=== PATIENT | female | born 1965 | race American Indian/Alaskan Native ===

== ENCOUNTER 2017-05-04 09:41 | Emergency (ER) | payer OTHER ==
[2017-05-04 09:55] VITALS: BP 186/87
--- NOTE | 2017-05-04 10:54 | Emergency Department Report ---
ED General Adult HPI - General Chief complaint: Chest Pain Stated complaint: BREAST PAIN /KNOT IN BREAST Time Seen by Provider: 05/04/17 10:27 Source: patient Mode of arrival: Ambulatory Limitations: No Limitations - History of Present Illness Initial comments: PT states she was seen by PCP in July for knot in her left breast. PT states she had US and mammogram and was told that the knot is not cancerous. PT states she was told that she needs a breast biopsy. PT states that she lost her insurance and never followed up for biopsy. PT states that her L breast knot has gotten larger over the past 2 months. PT states that she has not followed up with PCP for htn or asthma management. PT states she needs a refill. Pt menopausal. PT states lmp 02/2016 MD Complaint: breast pain -: Gradual, month(s) Location: chest (L breast ) Severity scale (0 -10): 7 (breast pain) Consistency: intermittent Improves with: medication Associated Symptoms: denies other symptoms. denies: chest pain, cough, fever/ chills, headaches, loss of appetite, nausea/vomiting, shortness of breath Treatments Prior to Arrival: none - Related Data Previous Rx's Medication Instructions Recorded Last Taken Type ALBUTEROL NEB's [Proventil 0.083% 2.5 mg IH QID PRN #25 neb 05/04/17 Unknown Rx NEBS] Diclofenac Sodium [Voltaren] 4 gm TP BID PRN #1 tube 05/04/17 Unknown Rx Ibuprofen [Motrin] 600 mg PO Q8H PRN #15 tablet 05/04/17 Unknown Rx amLODIPine [Norvasc] 10 mg PO DAILY #30 tab 05/04/17 Unknown Rx Allergies Allergy/AdvReac Type Severity Reaction Status Date / Time codeine Allergy Shortness Verified 09/24/14 08:57 of Breath ED Review of Systems ROS: Stated complaint: BREAST PAIN /KNOT IN BREAST Other details as noted in HPI Comment: All other systems reviewed and negative Constitutional: denies: chills, fever Respiratory: other (pt states she is out of her asthma medication and needs a refill but she denies current symptoms ). denies: shortness of breath, SOB with exertion, SOB at rest, wheezing Cardiovascular: denies: chest pain Gastrointestinal: denies: nausea, vomiting Neurological: denies: headache, weakness Hematological/Lymphatic: denies: easy bleeding, easy bruising ED Past Medical Hx - Past Medical History Previous Medical History?: Yes Hx Hypertension: Yes Hx Asthma: Yes Hx COPD: Yes - Surgical History Past Surgical History?: Yes Additional Surgical History: tubal, - Social History Smoking Status: Never Smoker Substance Use Type: Alcohol - Medications Home Medications: Home Medications Medication Instructions Recorded Confirmed Last Taken Type ALBUTEROL NEB's [Proventil 0.083% 2.5 mg IH QID PRN #25 neb 05/04/17 Unknown Rx NEBS] Diclofenac Sodium [Voltaren] 4 gm TP BID PRN #1 tube 05/04/17 Unknown Rx Ibuprofen [Motrin] 600 mg PO Q8H PRN #15 tablet 05/04/17 Unknown Rx amLODIPine [Norvasc] 10 mg PO DAILY #30 tab 05/04/17 Unknown Rx ED Physical Exam - General Limitations: No Limitations General appearance: alert, in no apparent distress - Head Head exam: Present: atraumatic, normocephalic, normal inspection - Eye Eye exam: Present: normal appearance, PERRL, EOMI. Absent: conjunctival injection - ENT ENT exam: Present: normal exam, normal external ear exam - Neck Neck exam: Present: normal inspection, full ROM - Respiratory Respiratory exam: Present: normal lung sounds bilaterally. Absent: respiratory distress, wheezes, rales, rhonchi, chest wall tenderness, accessory muscle use, decreased breath sounds - Cardiovascular Cardiovascular Exam: Present: regular rate, normal rhythm, normal heart sounds - GI/Abdominal GI/Abdominal exam: Present: soft. Absent: tenderness - External exam: Present: other (R breast without rash or palpable mass. L breast with 4cm x 5 cm mass, non tender, no redness or changes to skin noted. ) - Extremities Exam Extremities exam: Present: normal inspection, full ROM - Back Exam Back exam: Present: normal inspection, full ROM. Absent: tenderness, CVA tenderness (R), CVA tenderness (L) - Neurological Exam Neurological exam: Present: alert, oriented X3 - Psychiatric Psychiatric exam: Present: normal affect, normal mood - Skin Skin exam: Present: warm, dry, intact, normal color ED Course Vital Signs 05/04/17 09:51 Temperature 98.4 F Pulse Rate 78 Respiratory 16 Rate Blood Pressure 186/87 O2 Sat by Pulse 97 Oximetry - Reevaluation(s) Reevaluation #1: 05/04/17 11:15 PT aware she will need to follow up with PCP for group home management of asthma and htn. PT advised to follow up with OB/ [facility] or health department for further evaluation of breast mass. PT verbalizes understanding. PT has no questions at this time. - Pulse Oximetry Interpretation Digit-Finger Initial Pulse Oximetry Readin Actions Taken: none ED Medical Decision Making - Differential Diagnosis breast mass, breast abscess, htn, asthma Critical Care Time: No Critical care attestation.: If time is entered above; I have spent that time in minutes in the direct care of this critically ill patient, excluding procedure time. ED Disposition Clinical Impression: Breast mass, left HTN (hypertension) Qualifiers: Hypertension type: essential hypertension Qualified Code(s): I10 - Essential ( primary) hypertension Asthma Qualifiers: Asthma severity: mild intermittent Asthma complication type: uncomplicated Qualified Code(s): J45.20 - Mild intermittent asthma, uncomplicated Disposition: TO HOME OR SELFCARE Is pt being admited?: No Does the pt Need Aspirin: No Condition: Stable Instructions: Breast Self-exam (ED), Asthma (ED), Hypertension (ED), Breast Mass (ED) Additional Instructions: Follow up with [facility] or Health Dept for further evaluation of breast mass Follow up with PCP in the next 3-5 days for bp recheck and management of your blood pressure and asthma Return to the ED if you develop chest pain, shortness or breath or headaches If you can not afford the RX for Voltaren gel, please fill your RX for Motrin Prescriptions: ALBUTEROL NEB's [Proventil 0.083% NEBS] 2.5 mg IH QID PRN #25 neb PRN Reason: Wheezing amLODIPine [Norvasc] 10 mg PO DAILY #30 tab Diclofenac Sodium [Voltaren] 4 gm TP BID PRN #1 tube PRN Reason: Pain Ibuprofen [Motrin] 600 mg PO Q8H PRN #15 tablet PRN Reason: Pain Referrals: ABDIAZIZ BAEZA MD [Staff Physician] - 3-5 Days [facility] [Provider Group] - 3-5 Days [facility] [Outside] - 3-5 Days [facility] [Outside] - 3-5 Days [facility] [Outside] - 3-5 Days Forms: Work/School Release Form(ED) Time of Disposition: 11:25
== END 2017-05-04 12:26 | disposition home or self-care (01) ==
LOC: ED 09:41
DX: N63 Unspecified lump in breast (principal); I10 Essential (primary) hypertension; J45.909 Unspecified asthma, uncomplicated; J44.9 Chronic obstructive pulmonary disease, unspecified; Z88.6 Allergy status to analgesic agent
CPT/HCPCS: 99281

== ENCOUNTER 2018-03-18 18:53 | Emergency (ER) | payer MEDICAID ==
[2018-03-18 21:09] LABS: Basophils # (Auto) 0.1 K/mm3 (0.0-0.1); Basophils % (Auto) 1.3 % (0.0-1.8); Eosinophils # (Auto) 0.1 K/mm3 (0.0-0.4); Eosinophils % (Auto) 1.3 % (0.0-4.3); Hematocrit 34.6 % (30.3-42.9); Hemoglobin 12.1 gm/dl (10.1-14.3); Lymphocytes % (Auto) 40.9 % (13.4-35.0); Mean Corpuscular HGB Conc 35 % (30-34); Mean Corpuscular Hemoglobin 29 pg (28-32); Mean Corpuscular Volume 84 fl (79-97); Monocytes # (Auto) 1.1 K/mm3 (0.0-0.8); Platelet Count 284 K/mm3 (140-440); Red Blood Count 4.14 M/mm3 (3.65-5.03); Red Cell Distribution Width 13.1 % (13.2-15.2)
[2018-03-18 21:21] LABS: INR 0.99 (0.87-1.13)
[2018-03-18 21:22] LABS: Partial Thromboplastin Time 26.6 Sec. (24.2-36.6)
[2018-03-18 21:55] LABS: Alanine Aminotransferase 25 units/L (7-56); Albumin 3.9 g/dL (3.9-5); Blood Urea Nitrogen 13 mg/dL (7-17)
[2018-03-18 22:18] LABS: BUN/Creatinine Ratio 22; Calcium 9.1 mg/dL (8.4-10.2); Hemolysis Index 4
[2018-03-19 00:37] VITALS: BP 154/70
[2018-03-19] MEDS ORDERED: LASIX PO ONE (01:03)
--- NOTE | 2018-03-19 01:13 | Emergency Department Report ---
HPI - General Chief Complaint: Extremity Injury, Lower Time Seen by Provider: 03/19/18 00:41 - HPI HPI: 52-year-old female presents to the emergency department with complaint of a few days of bilateral leg swelling. The patient had a left breast mastectomy done last secondary to breast cancer. She has a Claus-Wright drain in place currently. Her oncologist is Dr. Galina Swartz. The patient called the oncologist regarding the leg swelling and was told to go to the emergency Department to rule out a blood clot. She has an intermittent pain to the legs but says that they are very swollen. She was given some Lasix to try over the past few days but did not take any of it today. She also has a history of COPD, hypertension. She denies any skin color change or fluctuance. ED Past Medical Hx - Past Medical History Hx Hypertension: Yes Hx of Cancer: Yes (Left Breast Mastectomy) Hx Asthma: Yes Hx COPD: Yes - Surgical History Additional Surgical History: tubal, , Left breast Mastectomy - Social History Smoking Status: Never Smoker Substance Use Type: None - Medications Home Medications: Home Medications Medication Instructions Recorded Confirmed Last Taken Type ALBUTEROL NEB's [Proventil 0.083% 2.5 mg IH QID PRN #25 neb 05/04/17 Unknown Rx NEBS] Diclofenac Sodium [Voltaren] 4 gm TP BID PRN #1 tube 05/04/17 Unknown Rx Ibuprofen [Motrin] 600 mg PO Q8H PRN #15 tablet 05/04/17 Unknown Rx amLODIPine [Norvasc] 10 mg PO DAILY #30 tab 05/04/17 Unknown Rx ED Review of Systems ROS: Stated complaint: BILATERAL LEG SWELLING Other details as noted in HPI Comment: All other systems reviewed and negative Constitutional: denies: chills, fever Eyes: denies: eye pain, eye discharge, vision change ENT: denies: ear pain, throat pain Respiratory: denies: cough, shortness of breath, wheezing Cardiovascular: edema. denies: chest pain, palpitations Gastrointestinal: denies: abdominal pain, nausea, diarrhea Genitourinary: denies: urgency, dysuria, discharge Musculoskeletal: myalgia. denies: back pain Skin: denies: rash, lesions Neurological: denies: headache, weakness, paresthesias Physical Exam - Physical Exam Vital Signs: Vital Signs 03/18/18 03/19/18 19:53 00:36 Temperature 98.3 F 98.0 F Pulse Rate 82 72 Respiratory 16 14 Rate Blood Pressure 154/73 Blood Pressure 154/70 [Right] O2 Sat by Pulse 99 99 Oximetry Physical Exam: GENERAL: The patient is well-developed well-nourished. HENT: Normocephalic. Atraumatic. Patient has moist mucous membranes. EYES: Extraocular motions are intact. Pupils equal reactive to light bilaterally. NECK: Supple. Trachea is midline. CHEST/LUNGS: Clear to auscultation. There is no respiratory distress noted. Patient is tender to the left side of the chest where she had her recent mastectomy and a Claus Wright drain in place. HEART/CARDIOVASCULAR: Regular. There is no tachycardia. There is no murmur. ABDOMEN: Abdomen is soft, nontender. Patient has normal bowel sounds. There is no abdominal distention. SKIN: There is bilateral lower extremity mild pitting edema. NEURO: The patient is awake, alert, and oriented. The patient is cooperative. The patient has no focal neurologic deficits. The patient has normal speech. MUSCULOSKELETAL: There is no tenderness or deformity. There is no limitation range of motion. There is no evidence of acute injury. ED Course Vital Signs 03/18/18 03/19/18 19:53 00:36 Temperature 98.3 F 98.0 F Pulse Rate 82 72 Respiratory 16 14 Rate Blood Pressure 154/73 Blood Pressure 154/70 [Right] O2 Sat by Pulse 99 99 Oximetry ED Medical Decision Making - Lab Data Result diagrams: 03/18/18 20:34 03/18/18 20:34 - Medical Decision Making The patient was sent in to rule out DVT as she has some recent lower extremity swelling after having a mastectomy done. However by the time the patient had arrived to the emergency department on Wednesday evening we did not have the capability of doing a venous Doppler ultrasound. She had some other blood work that does not show any signs of infection or congestive heart failure as the source of her lower extremity swelling. The patient was given 2 options to get the venous Doppler done. She was allowed to remain in the emergency department and then in the morning we would get the ultrasound done prior to discharge. She was also told that we could set her up to be discharged home to get some rest and then return in the morning for the venous Doppler ultrasound. The patient shows to be discharged home to get some rest in her own bed. However we obtained a valid cell phone number and the vascular ultrasound department will call the patient this morning to schedule her Doppler to be done. If it is positive, the patient will be redirected to the emergency department. If negative, the patient will continue her follow-up with primary care and her oncologist. The patient understands the importance of coming in to do the Doppler ultrasound and said that she will return. - Differential Diagnosis DVT, CHF, venous stasis, cellulitis Critical Care Time: No Critical care attestation.: If time is entered above; I have spent that time in minutes in the direct care of this critically ill patient, excluding procedure time. ED Disposition Clinical Impression: Bilateral leg edema, Hypertension Disposition: TO HOME OR SELFCARE Is pt being admited?: No Condition: Stable Instructions: Leg Edema (ED), Hypertension (ED) Additional Instructions: I am getting you set up to return later today for a bilateral lower extremity venous Doppler ultrasound to rule out blood clots in the legs. If positive, he will be redirected to the emergency department for anticoagulation. If negative , you can follow up with your primary care physician and oncologist. Return to the emergency department with any development of shortness of breath, worsening of your symptoms, fever, or with any acute distress. Referrals: DONITA HATHAWAY MD [Primary Care Provider] - 3-5 Days Time of Disposition: 02:20
== END 2018-03-19 02:20 | disposition home or self-care (01) ==
LOC: ED 18:53
DX: R60.0 Localized edema (principal); I10 Essential (primary) hypertension; J44.9 Chronic obstructive pulmonary disease, unspecified
CPT/HCPCS: 36415; 80053; 85025; 85610; 85730

== ENCOUNTER 2018-03-19 10:54 | Outpatient (CLI) | payer MEDICAID | END 2018-03-19 10:55 | disposition home or self-care (01) | LOC: VAS 10:54 | PROVIDERS: ATTEND Emergency Medicine | DX: M79.605 Pain in left leg (principal); M79.604 Pain in right leg; M79.89 Other specified soft tissue disorders; J44.9 Chronic obstructive pulmonary disease, unspecified; I10 Essential (primary) hypertension | CPT/HCPCS: 93970 ==